=== PATIENT | male | born 1965 | race Caucasian/White ===

== ENCOUNTER 2016-04-29 12:06 | Emergency (ER) | payer OTHER ==
[~2016-04-29] VITALS: Ht 188 cm; Wt 136.1 kg
[~2016-04-29 12:06] MED LIST: AMBIEN10 MG PO; FLEXERIL10 MG PO; GABAPENTIN300 MG PO; MELOXICAM7.5 MG PO; MIRALAX17 GM PO; MOBIC7.5 MG PO; MOTRIN800 MG PO; NEURONTIN300 MG PO; NORCO 5/3251 TABLET PO; NORCO 7.5/321 TABLET PO; OXYCODONE-APAP1 EAC6 PO; PEPCID40 MG PO; PRILOSEC20 MG PO; ULTRAM50 MG PO; VENTOLIN HFA18 GM IH
[2016-04-29 13:18] LABS: HEMATOCRIT 49.3 % (38.0-50.0); MCH 28.5 PG (29.0-34.0); MCHC 34.9 G/DL (30.0-36.0); MCV 81.6 FL (86-99); MEAN PLAT.VOLUME 8.7 uM^3 (9.0-12.4); PLATELET COUNT 116 K/uL (156-360); RBC DIS.WIDTH-SD 38.7 % (39-53); RED BLOOD COUNT 6.04 M/uL (4.00-5.50); WHITE BLOOD COUNT 8.5 K/uL (4.1-10.2)
[2016-04-29 13:27] LABS: CHLORIDE 106 mEq/L (99-109); SODIUM 140 mEq/L (136-147)
[2016-04-29 13:29] LABS: GLUCOSE 106 mg/dL (70-99)
[2016-04-29 13:30] LABS: ANION GAP 11 MEQ/L (2-14)
[2016-04-29 13:33] LABS: GFR ESTIMATE (CALCULATED) > 59 mL/min/
[2016-04-29 13:34] LABS: UREA NITROGEN (BUN) 9 mg/dL (9-23)
[2016-04-29] MEDS ORDERED: PROAIR HFA8.5 GM IH (18:46)
[2016-04-29] MEDS ORDERED: DELTASONE20 M1 PO (18:46)
[2016-04-29] MEDS ORDERED: ROBITUSSIN NIG118 ML PO (18:46)
[2016-04-29] MEDS ORDERED: TESSALON PERLE100 MG PO (18:46)
[2016-04-29 18:54] VITALS: BP 130/90
== END 2016-04-29 19:10 | disposition home or self-care (01) ==
LOC: EME 12:06
DX: J45.901 Unspecified asthma with (acute) exacerbation (principal); J06.9 Acute upper respiratory infection, unspecified; R51 Headache
CPT/HCPCS: 71020; 80048; 85027; 94640; 99281; 99284; J7512

== ENCOUNTER 2016-12-09 10:32 | Day surgery (SDC) | payer OTHER ==
[~2016-12-09] VITALS: Ht 188 cm; Wt 136.4 kg
[~2016-12-09 10:32] MED LIST changes: +BROVANA15 MCG/2 M IH; +DELTASONE20 M1 PO; +LEXAPRO20 MG PO; +PROAIR HFA8.5 GM IH; +ROBITUSSIN NIG118 ML PO; +SEROQUEL100 MG PO; +TESSALON PERLE100 MG PO
== END 2016-12-09 12:00 | disposition home or self-care (01) ==
LOC: PAIN 10:32 → SDC 11:15 → PAIN 11:15
DX: M51.16 Intervertebral disc disorders with radiculopathy, lumbar region (principal); M54.5 Low back pain; G89.29 Other chronic pain; M48.061 Spinal stenosis, lumbar region without neurogenic claudication; I10 Essential (primary) hypertension; J45.909 Unspecified asthma, uncomplicated; K21.9 Gastro-esophageal reflux disease without esophagitis; E66.9 Obesity, unspecified; Z68.38 Body mass index [BMI] 38.0-38.9, adult
CPT/HCPCS: J1100; J2250; J3010

== ENCOUNTER 2017-02-16 08:43 | Day surgery (SDC) | payer OTHER ==
[~2017-02-16] VITALS: Ht 188 cm; Wt 136.4 kg
[~2017-02-16 08:43] MED LIST changes: +FLEXERIL5 MG PO; +PERCOCET 5/31 TABLET PO; +PROVENTIL,2.5 MG/0.5 IH; -SEROQUEL100 MG PO; +SEROQUEL200 MG PO; +SYMBICORT60 INHALAT IH; +TRUVADA1 TABLET PO; +ZESTRIL40 MG PO
[2017-02-16] MEDS ORDERED: AUGMENTIN875 MG PO (09:29)
== END 2017-02-16 10:36 | disposition home or self-care (01) ==
LOC: PAIN 08:43 → SDC 09:15 → PAIN 09:15
DX: M47.26 Other spondylosis with radiculopathy, lumbar region (principal); M51.16 Intervertebral disc disorders with radiculopathy, lumbar region; M54.5 Low back pain; G89.29 Other chronic pain; M62.830 Muscle spasm of back; I10 Essential (primary) hypertension; J45.20 Mild intermittent asthma, uncomplicated; K21.9 Gastro-esophageal reflux disease without esophagitis; E66.3 Overweight; Z68.38 Body mass index [BMI] 38.0-38.9, adult; Z79.891 Long term (current) use of opiate analgesic
CPT/HCPCS: J1030; J2250; J3010; S0020

== ENCOUNTER 2017-02-23 08:44 | Day surgery (SDC) | payer OTHER ==
[~2017-02-23] VITALS: Ht 188 cm; Wt 136.4 kg
[~2017-02-23 08:44] MED LIST changes: +AUGMENTIN875 MG PO
== END 2017-02-23 10:20 | disposition home or self-care (01) ==
LOC: PAIN 08:44 → SDC 09:15 → PAIN 10:20
DX: M47.26 Other spondylosis with radiculopathy, lumbar region (principal); M51.16 Intervertebral disc disorders with radiculopathy, lumbar region; I10 Essential (primary) hypertension; J45.909 Unspecified asthma, uncomplicated; K21.9 Gastro-esophageal reflux disease without esophagitis; E66.9 Obesity, unspecified; Z68.38 Body mass index [BMI] 38.0-38.9, adult
CPT/HCPCS: 93005; J1030; J2250; J3010; S0020

== ENCOUNTER 2017-05-19 12:53 | Inpatient (IN) | payer OTHER ==
[~2017-05-19] VITALS: Ht 188 cm; Wt 139.5 kg
[~2017-05-19 12:53] MED LIST changes: +PERCOCET 10/1 TABLET PO; -PERCOCET 5/31 TABLET PO; +SEROQUEL100 MG PO; -SEROQUEL200 MG PO
[2017-05-19 14:25] LABS: HEMATOCRIT 50.5 % (38.0-50.0); HEMOGLOBIN 17.9 G/DL (12.5-16.6); MCH 29.2 PG (29.0-34.0); MCHC 35.4 G/DL (30.0-36.0); MCV 82.4 FL (86-99); PLATELET COUNT 129 K/uL (156-360); RBC DIS.WIDTH-CV 11.8 % (11.8-14.6); RBC DIS.WIDTH-SD 34.9 % (39-53); RED BLOOD COUNT 6.13 M/uL (4.00-5.50); WHITE BLOOD COUNT 9.3 K/uL (4.1-10.2)
[2017-05-19 14:31] LABS: CHLORIDE 106 mEq/L (99-109); POTASSIUM 4.4 mEq/L (3.7-5.4); SODIUM 139 mEq/L (136-147)
[2017-05-19 14:33] LABS: GLUCOSE 112 mg/dL (70-99)
[2017-05-19 14:37] LABS: GFR ESTIMATE (CALCULATED) > 59 mL/min/ (58.99-99999)
[2017-05-19 14:38] LABS: UREA NITROGEN (BUN) 10 mg/dL (9-23)
[2017-05-19] MEDS ORDERED: MIRTAZAPINE30 MG PO (17:33)
[2017-05-19] MEDS ORDERED: ANTI-DIARRHEAL2 M2 PO (17:35)
[2017-05-19 18:14] VITALS: BP 145/81
[2017-05-19 20:00] VITALS: BP 138/78
[2017-05-20 00:08] VITALS: BP 123/65
[2017-05-20 05:07] VITALS: BP 93/54
[2017-05-20 06:31] LABS: BASOPHIL (%) 0.1 % (0-1); EOSINOPHIL (%) 0 % (0-5); HEMATOCRIT 45.1 % (38.0-50.0); HEMOGLOBIN 15.4 G/DL (12.5-16.6); IMMATURE GRANULOCYTE (%) 0.7 % (0.0-0.7); LYMPHOCYTE (%) 9.1 % (15-42); LYMPHOCYTE COUNT 0.7 K/uL (1.0-2.8); MCH 28.2 PG (29.0-34.0); MCHC 34.1 G/DL (30.0-36.0); MCV 82.6 FL (86-99); MONOCYTE (%) 1.7 % (3-12); MONOCYTE COUNT 0.1 K/uL (0-0.8); NEUTROPHIL (%) 88.4 % (45-76); NEUTROPHIL COUNT 7.1 K/uL (1.8-6.4); PLATELET COUNT 123 K/uL (156-360); RBC DIS.WIDTH-CV 11.9 % (11.8-14.6); RBC DIS.WIDTH-SD 35.9 % (39-53); RED BLOOD COUNT 5.46 M/uL (4.00-5.50)
[2017-05-20 06:51] LABS: ALBUMIN 3.7 G/DL (3.2-4.8); ALKALINE PHOSPHATASE 61 IU/L (3-129); ALT (GPT) 23 IU/L (3-49); AST (GOT) 18 IU/L (2-34); CHLORIDE 106 MEQ/L (99-109); CREATININE 1.1 MG/DL (0.6-1.3); GFR ESTIMATE (CALCULATED) > 59 mL/min/ (58.99-99999); GLUCOSE 167 mg/dL (70-99); POTASSIUM 4.3 MEQ/L (3.7-5.4); SODIUM 139 MEQ/L (136-147); TOTAL BILIRUBIN 0.6 MG/DL (0.0-1.0); TOTAL PROTEIN 6.2 G/DL (6.4-8.3)
[2017-05-20 07:00] LABS: UREA NITROGEN (BUN) 21 mg/dL (9-23)
[2017-05-20 07:53] VITALS: BP 108/66
[2017-05-20 12:16] VITALS: BP 125/54
[2017-05-20 16:50] VITALS: BP 136/57
[2017-05-20 19:09] VITALS: BP 136/63
[2017-05-21] VITALS (7 sets, daily range): BP systolic 12–135; BP diastolic 52–81
[2017-05-22] VITALS (7 sets, daily range): BP systolic 127–144; BP diastolic 62–90
[2017-05-22 06:26] LABS: BASOPHIL (%) 0.1 % (0-1); EOSINOPHIL (%) 0 % (0-5); HEMATOCRIT 46.2 % (38.0-50.0); HEMOGLOBIN 15.6 G/DL (12.5-16.6); IMMATURE GRANULOCYTE (%) 0.8 % (0.0-0.7); LYMPHOCYTE (%) 6.8 % (15-42); LYMPHOCYTE COUNT 1.1 K/uL (1.0-2.8); MCH 28.6 PG (29.0-34.0); MCHC 33.8 G/DL (30.0-36.0); MCV 84.8 FL (86-99); MONOCYTE (%) 2.3 % (3-12); MONOCYTE COUNT 0.4 K/uL (0-0.8); NEUTROPHIL COUNT 14.6 K/uL (1.8-6.4); PLATELET COUNT 132 K/uL (156-360); RBC DIS.WIDTH-SD 36.5 % (39-53); RED BLOOD COUNT 5.45 M/uL (4.00-5.50); WHITE BLOOD COUNT 16.2 K/uL (4.1-10.2)
[2017-05-22 06:50] LABS: ALBUMIN 3.6 G/DL (3.2-4.8); ALKALINE PHOSPHATASE 51 IU/L (3-129); ALT (GPT) 26 IU/L (3-49); AST (GOT) 20 IU/L (2-34); CHLORIDE 104 MEQ/L (99-109); CREATININE 0.8 MG/DL (0.6-1.3); GFR ESTIMATE (CALCULATED) > 59 mL/min/ (58.99-99999); GLUCOSE 125 mg/dL (70-99); POTASSIUM 4.1 MEQ/L (3.7-5.4); SODIUM 141 MEQ/L (136-147); TOTAL BILIRUBIN 0.6 MG/DL (0.0-1.0); TOTAL PROTEIN 6.2 G/DL (6.4-8.3); UREA NITROGEN (BUN) 17 mg/dL (9-23)
[2017-05-22 19:24] LABS: APPEARANCE CLEAR ((CLEAR)); BILIRUBIN NEGATIVE; BLOOD NEGATIVE; COLOR YELLOW ((YELLOW)); GLUCOSE (STRIP) NEGATIVE; KETONES NEGATIVE; LEUKOCYTES NEGATIVE; NITRITE NEGATIVE; PROTEIN (STRIP) NEGATIVE; SPECIFIC GRAVITY 1.015 (1.000-1.030); UCUL ADDED? NO; UROBILINOGEN 0.2 MG/DL (0.2-1.0)
[2017-05-23 03:19] VITALS: BP 134/79
[2017-05-23 06:06] LABS: BASOPHIL (%) 0.2 % (0-1); EOSINOPHIL (%) 0 % (0-5); HEMATOCRIT 45.4 % (38.0-50.0); HEMOGLOBIN 15.4 G/DL (12.5-16.6); LYMPHOCYTE (%) 7.4 % (15-42); MCH 28.7 PG (29.0-34.0); MCHC 33.9 G/DL (30.0-36.0); MCV 84.5 FL (86-99); MONOCYTE (%) 2.7 % (3-12); MONOCYTE COUNT 0.4 K/uL (0-0.8); NEUTROPHIL (%) 88.7 % (45-76); PLATELET COUNT 163 K/uL (156-360); RBC DIS.WIDTH-CV 11.9 % (11.8-14.6); RED BLOOD COUNT 5.37 M/uL (4.00-5.50); WHITE BLOOD COUNT 13.5 K/uL (4.1-10.2)
[2017-05-23 06:28] LABS: CHLORIDE 103 MEQ/L (99-109); CREATININE 0.9 MG/DL (0.6-1.3); GFR ESTIMATE (CALCULATED) > 59 mL/min/ (58.99-99999); GLUCOSE 143 mg/dL (70-99); POTASSIUM 4.9 MEQ/L (3.7-5.4); SODIUM 141 MEQ/L (136-147); UREA NITROGEN (BUN) 17 mg/dL (9-23)
[2017-05-23 09:21] VITALS: BP 154/80
[2017-05-23 11:30] VITALS: BP 119/64
[2017-05-23 15:35] VITALS: BP 130/75
[2017-05-23 21:00] VITALS: BP 145/78
[2017-05-23 23:22] VITALS: BP 126/65
[2017-05-24 04:03] VITALS: BP 118/59
[2017-05-24 07:22] VITALS: BP 141/86
[2017-05-24 11:41] VITALS: BP 100/49
[2017-05-24 15:37] VITALS: BP 120/70
[2017-05-24 19:39] VITALS: BP 122/69
[2017-05-24 23:25] VITALS: BP 106/62
[2017-05-25 03:59] VITALS: BP 107/67
[2017-05-25 06:45] LABS: BASOPHIL (%) 0.3 % (0-1); EOSINOPHIL (%) 0.3 % (0-5); HEMATOCRIT 45.6 % (38.0-50.0); HEMOGLOBIN 15.9 G/DL (12.5-16.6); IMMATURE GRANULOCYTE (%) 2.9 % (0.0-0.7); LYMPHOCYTE (%) 19.3 % (15-42); LYMPHOCYTE COUNT 2.1 K/uL (1.0-2.8); MCH 29.4 PG (29.0-34.0); MCHC 34.9 G/DL (30.0-36.0); MCV 84.3 FL (86-99); MONOCYTE (%) 8.2 % (3-12); MONOCYTE COUNT 0.9 K/uL (0-0.8); NEUTROPHIL COUNT 7.4 K/uL (1.8-6.4); PLATELET COUNT 122 K/uL (156-360); RBC DIS.WIDTH-CV 11.8 % (11.8-14.6); RBC DIS.WIDTH-SD 35.6 % (39-53); RED BLOOD COUNT 5.41 M/uL (4.00-5.50); WHITE BLOOD COUNT 10.8 K/uL (4.1-10.2)
[2017-05-25 07:18] LABS: CHLORIDE 102 MEQ/L (99-109); CREATININE 0.9 MG/DL (0.6-1.3); GFR ESTIMATE (CALCULATED) > 59 mL/min/ (58.99-99999); POTASSIUM 4.3 MEQ/L (3.7-5.4); SODIUM 139 MEQ/L (136-147); UREA NITROGEN (BUN) 20 mg/dL (9-23)
[2017-05-25 07:32] LABS: GLUCOSE 103 mg/dL (70-99)
[2017-05-25 08:25] VITALS: BP 120/73
[2017-05-25 11:56] VITALS: BP 135/72
[2017-05-25 15:03] VITALS: BP 120/65
[2017-05-25 15:18] VITALS: BP 125/65
[2017-05-25 20:00] VITALS: BP 135/71
[2017-05-26] VITALS (7 sets, daily range): BP systolic 101–131; BP diastolic 50–83
[2017-05-26 08:58] LABS: HEMATOCRIT 51.4 % (38.0-50.0); MCH 27.8 PG (29.0-34.0); MCHC 33.1 G/DL (30.0-36.0); MCV 84.1 FL (86-99); PLATELET COUNT 134 K/uL (156-360); RBC DIS.WIDTH-CV 11.8 % (11.8-14.6); RBC DIS.WIDTH-SD 35.4 % (39-53); RED BLOOD COUNT 6.11 M/uL (4.00-5.50); WHITE BLOOD COUNT 11.9 K/uL (4.1-10.2)
[2017-05-27 03:19] VITALS: BP 106/67
[2017-05-27 06:27] LABS: BASOPHIL (%) 0.3 % (0-1); EOSINOPHIL (%) 0.7 % (0-5); EOSINOPHIL COUNT 0.1 K/uL (0-0.3); HEMATOCRIT 46.1 % (38.0-50.0); HEMOGLOBIN 15.8 G/DL (12.5-16.6); LYMPHOCYTE (%) 13.4 % (15-42); LYMPHOCYTE COUNT 1.8 K/uL (1.0-2.8); MCH 28.9 PG (29.0-34.0); MCHC 34.3 G/DL (30.0-36.0); MCV 84.3 FL (86-99); MONOCYTE (%) 6.4 % (3-12); MONOCYTE COUNT 0.9 K/uL (0-0.8); NEUTROPHIL (%) 76.2 % (45-76); NEUTROPHIL COUNT 10.5 K/uL (1.8-6.4); PLATELET COUNT 122 K/uL (156-360); RBC DIS.WIDTH-CV 11.9 % (11.8-14.6); RBC DIS.WIDTH-SD 35.7 % (39-53); RED BLOOD COUNT 5.47 M/uL (4.00-5.50); WHITE BLOOD COUNT 13.7 K/uL (4.1-10.2)
[2017-05-27 06:52] LABS: CHLORIDE 102 MEQ/L (99-109); GFR ESTIMATE (CALCULATED) > 59 mL/min/ (58.99-99999); GLUCOSE 110 mg/dL (70-99); POTASSIUM 3.9 MEQ/L (3.7-5.4); SODIUM 138 MEQ/L (136-147); UREA NITROGEN (BUN) 24 mg/dL (9-23)
[2017-05-27 08:51] VITALS: BP 117/68
[2017-05-27 12:24] VITALS: BP 116/66
[2017-05-27 16:18] VITALS: BP 131/79
[2017-05-27 19:49] VITALS: BP 120/91
[2017-05-28 05:27] VITALS: BP 109/65
[2017-05-28 05:42] LABS: BASOPHIL (%) 0.3 % (0-1); EOSINOPHIL (%) 0.9 % (0-5); EOSINOPHIL COUNT 0.1 K/uL (0-0.3); HEMATOCRIT 48.5 % (38.0-50.0); HEMOGLOBIN 16.2 G/DL (12.5-16.6); IMMATURE GRANULOCYTE (%) 3.4 % (0.0-0.7); LYMPHOCYTE (%) 19.4 % (15-42); LYMPHOCYTE COUNT 2.7 K/uL (1.0-2.8); MCH 28.1 PG (29.0-34.0); MCHC 33.4 G/DL (30.0-36.0); MCV 84.1 FL (86-99); MONOCYTE (%) 7.4 % (3-12); NEUTROPHIL (%) 68.6 % (45-76); NEUTROPHIL COUNT 9.4 K/uL (1.8-6.4); PLATELET COUNT 135 K/uL (156-360); RBC DIS.WIDTH-CV 11.7 % (11.8-14.6); RBC DIS.WIDTH-SD 35.4 % (39-53); RED BLOOD COUNT 5.77 M/uL (4.00-5.50); WHITE BLOOD COUNT 13.6 K/uL (4.1-10.2)
[2017-05-28 06:04] LABS: CHLORIDE 100 MEQ/L (99-109); CREATININE 1.2 MG/DL (0.6-1.3); GFR ESTIMATE (CALCULATED) > 59 mL/min/ (58.99-99999); GLUCOSE 104 mg/dL (70-99); POTASSIUM 4.4 MEQ/L (3.7-5.4); SODIUM 138 MEQ/L (136-147); UREA NITROGEN (BUN) 24 mg/dL (9-23)
[2017-05-28 09:11] VITALS: BP 108/65
[2017-05-28 11:41] LABS: TROP-I INTERPRETATION NEGATIVE; TROPONIN-I < 0.01 ng/mL (0.0-0.30)
[2017-05-28 12:24] VITALS: BP 111/81
[2017-05-28 13:24] LABS: CD4/CD8 Ratio 0.98 (0.86-5.00)
[2017-05-28 16:20] VITALS: BP 128/66
[2017-05-28] MEDS ORDERED: MUCINEX600 MG PO (16:24)
[2017-05-28] MEDS ORDERED: SPIRIVA RESPIMAT4 GM IH (16:24)
[2017-05-28] MEDS ORDERED: CYANOCOBAL1000 MCG/2 SC (16:25)
[2017-05-28] MEDS ORDERED: CYANOCOBALAM1000 MCG PO (16:26)
[2017-05-28 18:53] LABS: TROP-I INTERPRETATION NEGATIVE; TROPONIN-I < 0.01 ng/mL (0.0-0.30)
[2017-05-28 20:18] VITALS: BP 132/89
[2017-05-29 00:26] VITALS: BP 112/58
[2017-05-29 03:30] VITALS: BP 126/58
[2017-05-29 06:09] LABS: BASOPHIL (%) 0.4 % (0-1); BASOPHIL COUNT 0.1 K/uL (0-0.1); EOSINOPHIL (%) 0.7 % (0-5); EOSINOPHIL COUNT 0.1 K/uL (0-0.3); HEMATOCRIT 49.3 % (38.0-50.0); HEMOGLOBIN 16.7 G/DL (12.5-16.6); IMMATURE GRANULOCYTE (%) 3.8 % (0.0-0.7); LYMPHOCYTE (%) 19.3 % (15-42); LYMPHOCYTE COUNT 2.5 K/uL (1.0-2.8); MCH 28.5 PG (29.0-34.0); MCHC 33.9 G/DL (30.0-36.0); MCV 84.3 FL (86-99); MONOCYTE (%) 8.1 % (3-12); NEUTROPHIL (%) 67.7 % (45-76); NEUTROPHIL COUNT 8.7 K/uL (1.8-6.4); PLATELET COUNT 132 K/uL (156-360); RBC DIS.WIDTH-CV 11.7 % (11.8-14.6); RBC DIS.WIDTH-SD 35.5 % (39-53); RED BLOOD COUNT 5.85 M/uL (4.00-5.50); WHITE BLOOD COUNT 12.8 K/uL (4.1-10.2)
[2017-05-29 06:28] LABS: CHLORIDE 101 MEQ/L (99-109); CREATININE 1.3 MG/DL (0.6-1.3); GFR ESTIMATE (CALCULATED) > 59 mL/min/ (58.99-99999); GLUCOSE 105 mg/dL (70-99); POTASSIUM 4.6 MEQ/L (3.7-5.4); SODIUM 139 MEQ/L (136-147); UREA NITROGEN (BUN) 18 mg/dL (9-23)
[2017-05-29 07:13] VITALS: BP 120/68
[2017-05-29] MEDS ORDERED: LEVAQUIN750 MG PO (09:04)
[2017-05-29] MEDS ORDERED: COZAAR100 MG PO (09:46)
== END 2017-05-29 11:01 | disposition home health service (06) | DRG 189 ==
LOC: EME 12:53 → 5WEST 15:38 → EDOF 15:38 → ENRESERV 15:45 → 5WEST 18:07 → ENRESERV 05-21 12:33 → CANRESERV 05-21 12:33 → 5WEST 05-29 11:01
PROVIDERS: Hospitalist; Internal Medicine; Internal Medicine Medical Oncology; Physician Assistant
DX: J96.01 Acute respiratory failure with hypoxia (principal); J45.31 Mild persistent asthma with (acute) exacerbation; J20.9 Acute bronchitis, unspecified; D75.1 Secondary polycythemia; D69.6 Thrombocytopenia, unspecified; E66.9 Obesity, unspecified; I10 Essential (primary) hypertension; K21.9 Gastro-esophageal reflux disease without esophagitis; K76.0 Fatty (change of) liver, not elsewhere classified; Z68.39 Body mass index [BMI] 39.0-39.9, adult; E53.8 Deficiency of other specified B group vitamins; G47.33 Obstructive sleep apnea (adult) (pediatric); F32.9 Major depressive disorder, single episode, unspecified; F41.9 Anxiety disorder, unspecified; G89.29 Other chronic pain; K80.20 Calculus of gallbladder without cholecystitis without obstruction
CPT/HCPCS: 71045; 71046; 71275; 80048; 80053; 81003; 83090 90; 83880; 83921 90; 84484; 85025; 85027; 85379; 85652; 86140; 86355 90; 86359 90; 86360 90; 87502; 93005; 94010; 94640; 94640 76; 94644; 94760; 94799; 99202; 99281; 99285; G0378; J0456; J0696; J1650; J1956; J2930; J3420; J3475; J7030; J7512

== ENCOUNTER 2017-06-08 06:57 | Day surgery (SDC) | payer OTHER ==
[~2017-06-08] VITALS: Ht 188 cm; Wt 139.5 kg
[~2017-06-08 06:57] MED LIST changes: +ANTI-DIARRHEAL2 M2 PO; +COZAAR100 MG PO; +CYANOCOBAL1000 MCG/2 SC; +CYANOCOBALAM1000 MCG PO; +LEVAQUIN750 MG PO; +MIRTAZAPINE30 MG PO; +MUCINEX600 MG PO; +MUCUS ER600 MG PO; +REMERON30 M2 PO; +SPIRIVA RESPIMAT4 GM IH
== END 2017-06-08 08:50 | disposition home or self-care (01) ==
LOC: PAIN 06:57 → SDC 07:30 → PAIN 07:30
DX: M47.816 Spondylosis without myelopathy or radiculopathy, lumbar region (principal); M46.96 Unspecified inflammatory spondylopathy, lumbar region; M54.16 Radiculopathy, lumbar region; M62.830 Muscle spasm of back; K21.9 Gastro-esophageal reflux disease without esophagitis; I10 Essential (primary) hypertension; F32.9 Major depressive disorder, single episode, unspecified; Z88.8 Allergy status to other drugs, medicaments and biological substances; Z91.040 Latex allergy status
CPT/HCPCS: J1030; J2250; S0020

== ENCOUNTER 2017-06-15 06:49 | Day surgery (SDC) | payer OTHER ==
[~2017-06-15] VITALS: Ht 188 cm; Wt 141.1 kg
== END 2017-06-15 09:30 | disposition home or self-care (01) ==
LOC: PAIN 06:49 → SDC 07:30 → PAIN 09:30
DX: M47.816 Spondylosis without myelopathy or radiculopathy, lumbar region (principal); M99.83 Other biomechanical lesions of lumbar region; M54.16 Radiculopathy, lumbar region; M46.96 Unspecified inflammatory spondylopathy, lumbar region; M79.1 Myalgia; K21.9 Gastro-esophageal reflux disease without esophagitis; I10 Essential (primary) hypertension; F32.9 Major depressive disorder, single episode, unspecified; R15.9 Full incontinence of feces; J45.20 Mild intermittent asthma, uncomplicated; Z88.8 Allergy status to other drugs, medicaments and biological substances; Z91.040 Latex allergy status
CPT/HCPCS: J1030; J2250; S0020